=== PATIENT | male | born 1995 | race Two or more races ===

== ENCOUNTER 2022-01-12 22:17 | Emergency (ER) | payer SELFPAY ==
[~2022-01-12] VITALS: Ht 172.7 cm; Wt 75.0 kg
[2022-01-12] MEDS ORDERED: fentaNYL CITRATE 100 MCG/2 ML VL ONE ×2 (22:22→22:37)
[2022-01-12] MEDS ORDERED: KETAMINE HCL 10 ML ONE (22:42)
[2022-01-12] MEDS ORDERED: fentaNYL Drip 2500mCg/250mlNS 250 ML IV ONE (22:45)
[2022-01-12] MEDS ORDERED: TETANUS-DIPTH-ACEL PERTUSSIS 0.5ML SYR Tdap IM ONE (22:50)
[2022-01-12] MEDS ORDERED: ceFAZolin 1GM VL ONE (22:51)
[2022-01-12] MEDS ORDERED: ceFAZolin 1GM/50ML 50 ML IV ONE (23:00)
[2022-01-12] MEDS ORDERED: SODIUM CHL 3% 500 ML IV ONE (23:00)
[2022-01-12] MEDS ORDERED: TRANEXAMIC ACID 10 ML ONE (23:13)
[2022-01-12] MEDS ORDERED: fentaNYL Drip 2500mCg/250mlNS 250 ML IV SCH (23:15)
[2022-01-12] MEDS ORDERED: ETOMIDATE (2MG/ML) 20ML VIAL IV ONE (23:15)
[2022-01-12] MEDS ORDERED: SUCCINYLCHOLINE CHLORIDE 20 MG/ML 10ML VIAL IV ONE ×2 (23:15)
[2022-01-12] MEDS ORDERED: fentaNYL CITRATE 100 MCG/2 ML VL IV ONE ×2 (23:15)
[2022-01-13] MEDS ORDERED: TRANEXAMIC ACID 1,000 MG in SODIUM CHL 0.9% 100 ML IV ONE ×2
[2022-01-13] MEDS ORDERED: EPINEPHrine HCL 250 ML IV ONE
[2022-01-13] MEDS ORDERED: TETANUS-DIPTH-ACEL PERTUSSIS 0.5ML SYR Tdap IM ONE
[2022-01-13] MEDS ORDERED: EPINEPHrine HCL 1 MG/10 ML SYRG IV ONE
[2022-01-13] MEDS ORDERED: LIDOCAINE 2%HCL (LOCAL ANESTH.) INJ 20ML MDV ONE (00:14)
[2022-01-13] MEDS ORDERED: fentaNYL CITRATE 100 MCG/2 ML VL ONE (00:20)
[2022-01-13] MEDS ORDERED: ROCURONIUM 10MG/ML 10ML VIAL IV ONE ×2 (00:20→01:00)
[2022-01-13 00:35] VITALS: BP 101/50
[2022-01-13] MEDS ORDERED: KETAMINE 50mg/ML 10ml Vial (500mg/10ml) IV ONE ×2 (01:00)
[2022-01-13] MEDS ORDERED: fentaNYL CITRATE 100 MCG/2 ML VL IV ONE (01:00)
== END 2022-01-13 00:44 | disposition short-term general hospital (02) ==
LOC: ER 22:17 → EDBD 22:17 → ER 01-13 00:44
DX: S06.9X0A Unspecified intracranial injury without loss of consciousness, initial encounter (principal); S02.2XXA Fracture of nasal bones, initial encounter for closed fracture; I95.9 Hypotension, unspecified; S01.81XA Laceration without foreign body of other part of head, initial encounter; V23.4XXA Motorcycle driver injured in collision with car, pick-up truck or van in traffic accident, initial encounter; Y93.89 Activity, other specified; Y92.410 Unspecified street and highway as the place of occurrence of the external cause; Y99.8 Other external cause status
CPT/HCPCS: 12016; 31500; 32551; 36430; 71045; 74018; 86850; 86900; 86901; 86920; 87070; 87205; 90471; 90715; 96365; 96375; 99291; 99292; J0690; J3010; J7050; P9016; 94002